=== PATIENT | male | born 2000 | race Caucasian/White ===

== ENCOUNTER 2018-12-24 12:01 | Emergency (ER) | payer OTHER, BC ==
[~2018-12-24] VITALS: Ht 172.7 cm; Wt 99.8 kg
[2018-12-24 14:00] VITALS: BP 120/82
[2018-12-24] MEDS ORDERED: DICL50TA4 PO (14:36)
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
== END 2018-12-24 14:40 | disposition home or self-care (01) ==
LOC: ER 12:01
DX: S00.01XA Abrasion of scalp, initial encounter (principal); S63.591A Other specified sprain of right wrist, initial encounter; V49.9XXA Car occupant (driver) (passenger) injured in unspecified traffic accident, initial encounter; Y93.89 Activity, other specified; Y92.410 Unspecified street and highway as the place of occurrence of the external cause; Y99.8 Other external cause status
CPT/HCPCS: 29125; 73110; 99283